=== PATIENT | male | born 1960 | race Caucasian/White ===

== ENCOUNTER 2018-12-01 06:24 | Emergency (ER) | payer OTHER ==
[2018-12-01] MEDS ORDERED: NS 1,000 ML IV ONE (06:49)
[2018-12-01 06:54] LABS: PLATELET COUNT 152 10^3/uL (150-400)
--- NOTE | 2018-12-01 07:04 | EDPHY ---
H & P Stated Complaint: upper abd pain starting this morning, feels bloated, recent nose sx Time Seen by Provider: 12/01/18 06:44 HPI/ROS: CHIEF COMPLAINT: Abdominal discomfort and distention HISTORY OF PRESENT ILLNESS: Patient is a 58-year-old man who had nasal septal surgery 5 days ago and has been taking Percocet since the surgery. He has taken 24 tablets. He flew to [place] and back yesterday and has not been drinking much water. He states that he had a small bowel movement earlier this morning but cannot remember his previous bowel movement. Woke up this morning at 6:00 a.m. With abdominal discomfort and was concerned that maybe it was a heart attack. No history of cardiac disease. No previous abdominal surgeries. He states that his pain is now gone. No shortness of breath. No diaphoresis. No nausea or vomiting. Severity: Moderate Modifying factors: Resolved REVIEW OF SYSTEMS: Constitutional: denies: chills, fever, recent illness, recent injury EENTM: denies: blurred vision, double vision, nose congestion Respiratory: denies: cough, shortness of breath Cardiac: denies: chest pain, irregular heart rate, lightheadedness, palpitations Gastrointestinal/Abdominal: See HPI Genitourinary: denies: dysuria, frequency, hematuria, pain Musculoskeletal: denies: joint pain, muscle pain Skin: denies: lesions, rash, jaundice, bruising Neurological: denies: headache, numbness, paresthesia, tingling, dizziness, weakness Hematologic/Lymphatic: denies: blood clots, easy bleeding, easy bruising Immunologic/allergic: denies: HIV/AIDS, transplant 10 systems reviewed and negative except as noted EXAM: GENERAL: Well-appearing, well-nourished and in no acute distress. HEAD: Atraumatic, normocephalic. EYES: Pupils equal round and reactive to light, extraocular movements intact, sclera anicteric, conjunctiva are normal. ENT: TMs normal, nares patent, oropharynx clear without exudates. Moist mucous membranes. NECK: Normal range of motion, supple without lymphadenopathy or JVD. LUNGS: Breath sounds clear to auscultation bilaterally and equal. No wheezes rales or rhonchi. HEART: Regular rate and rhythm without murmurs, rubs or gallops. ABDOMEN: Moderately distended, nontender, normoactive bowel sounds. No guarding, no rebound. No masses appreciated. BACK: No CVA tenderness, no spinal tenderness, step-offs or deformities EXTREMITIES: Normal range of motion, no pitting or edema. No clubbing or cyanosis. NEUROLOGICAL: Cranial nerves II through XII grossly intact. Normal speech, normal gait. 5/5 strength, normal movement in all extremities, normal sensation , normal reflexes PSYCH: Normal mood, normal affect. SKIN: Warm, dry, normal turgor, no visible rashes or lesions. Source: Patient - Personal History Current Tetanus/Diphtheria Vaccine: Yes Current Tetanus Diphtheria and Acellular Pertussis (TDAP): Yes - Medical/Surgical History Hx Asthma: No Hx Chronic Respiratory Disease: No Hx Diabetes: No Hx Cardiac Disease: No Hx Renal Disease: No Hx Cirrhosis: No Hx Alcoholism: No Hx HIV/AIDS: No Hx Splenectomy or Spleen Trauma: No Other PMH: deviated septum repair-2018 - Family History Significant Family History: No pertinent family hx - Social History Alcohol Use: Sober Drug Use: None Constitutional: Initial Vital Signs Temperature (C) 37.1 C 12/01/18 06:29 Heart Rate 64 12/01/18 06:29 Respiratory Rate 18 12/01/18 06:29 Blood Pressure 174/94 H 12/01/18 06:29 O2 Sat (%) 94 12/01/18 06:29 O2 Delivery Mode Room Air Allergies/Adverse Reactions: No Known Allergies Allergy (Unverified 12/01/18 06:28) Home Medications: Medication Instructions Recorded Cephalexin [Keflex] 12/01/18 Percocet 5-325 mg Tablet 12/01/18 Medical Decision Making - Diagnostics EKG Interpretation: An EKG obtained and was read and documented in trace view. Please see trace view for full reading and report. Sinus rhythm, no acute ischemic changes, Q- wave in inferior leads ED Course/Re-evaluation: 8:20 p.m. the patient remains asymptomatic other than stating that he has to go to the bathroom. I-STAT troponins failed 3 times. Will send the lab. Other lab work is reassuring. He is aware of his slightly elevated LFTs and his primary has been following this. He would like to go home if his trop is negative. 9:00 a.m. Patient and would like to go home. They do not want to wait for the troponin results. He remains asymptomatic. Differential Diagnosis: Partial list of the Differential diagnosis considered include but were not limited to; constipation, peptic ulcer disease, hepatitis and although unlikely based on the history and physical exam, I also considered obstruction, acute coronary disease, ischemia, appendicitis, biliary disease. - Data Points Laboratory Results: Laboratory Results 12/01/18 06:39 12/01/18 06:39 12/01/18 12/01/18 12/01/18 08:20 07:49 07:31 WBC RBC Hgb Hct MCV MCH MCHC RDW Plt Count MPV Neut % (Auto) Lymph % (Auto) [place] % (Auto) Eos % (Auto) Baso % (Auto) Nucleat RBC Rel Count Absolute Neuts (auto) Absolute Lymphs (auto) Absolute Monos (auto) Absolute Eos (auto) Absolute Basos (auto) Absolute Nucleated RBC Immature Gran % Immature Gran # Sodium Potassium Chloride Carbon Dioxide Anion Gap BUN Creatinine Estimated GFR Glucose Calcium Total Bilirubin Conjugated Bilirubin Unconjugated Bilirubin AST ALT Alkaline Phosphatase POC Troponin I TNP TNP Troponin I < 0.012 ng/mL ng/mL (0.000-0.034) Total Protein Albumin Lipase Urine Color Urine Appearance Urine pH Ur Specific [place] Urine Protein Urine Ketones Urine Blood Urine Nitrate Urine Bilirubin Urine Urobilinogen Ur Leukocyte Esterase Urine RBC Urine WBC Ur Epithelial Cells Urine Glucose 12/01/18 12/01/18 12/01/18 07:20 06:52 06:39 WBC RBC Hgb Hct MCV MCH MCHC RDW Plt Count MPV Neut % (Auto) Lymph % (Auto) [place] % (Auto) Eos % (Auto) Baso % (Auto) Nucleat RBC Rel Count Absolute Neuts (auto) Absolute Lymphs (auto) Absolute Monos (auto) Absolute Eos (auto) Absolute Basos (auto) Absolute Nucleated RBC Immature Gran % Immature Gran # Sodium 139 mEq/L mEq/L (135-145) Potassium 4.2 mEq/L mEq/L (3.5-5.2) Chloride 105 mEq/L mEq/L (97-110) Carbon Dioxide 24 mEq/l mEq/l (22-31) Anion Gap 10 mEq/L mEq/L (6-14) BUN 15 mg/dL mg/dL (7-23) Creatinine 0.9 mg/dL mg/dL (0.7-1.3) Estimated GFR > 60 Glucose 93 mg/dL mg/dL (70-100) Calcium 9.4 mg/dL mg/dL (8.5-10.4) Total Bilirubin 0.4 mg/dL mg/dL (0.1-1.4) Conjugated Bilirubin 0.4 mg/dL mg/dL (0.0-0.5) Unconjugated Bilirubin 0.0 mg/dL mg/dL (0.0-1.1) AST 131 IU/L H IU/L (17-59) ALT 116 IU/L H IU/L (21-72) Alkaline Phosphatase 55 IU/L IU/L (38-126) POC Troponin I TNP Troponin I Total Protein 7.1 g/dL g/dL (6.3-8.2) Albumin 4.3 g/dL g/dL (3.5-5.0) Lipase 122 IU/L IU/L (23-300) Urine Color YELLOW Urine Appearance CLEAR Urine pH 6.0 (5.0-7.5) Ur Specific [place] 1.013 (1.002-1.030) Urine Protein NEGATIVE (NEGATIVE) Urine Ketones NEGATIVE (NEGATIVE) Urine Blood NEGATIVE (NEGATIVE) Urine Nitrate NEGATIVE (NEGATIVE) Urine Bilirubin NEGATIVE (NEGATIVE) Urine Urobilinogen NEGATIVE EU EU (0.2-1.0) Ur Leukocyte Esterase NEGATIVE (NEGATIVE) Urine RBC NONE SEEN /hpf /hpf (0-3) Urine WBC 0-1 /hpf /hpf (0-3) Ur Epithelial Cells NONE SEEN /lpf /lpf (NONE-1+) Urine Glucose NEGATIVE (NEGATIVE) 12/01/18 06:39 WBC 6.98 10^3/uL 10^3/uL (3.80-9.50) RBC 4.58 10^6/uL 10^6/uL (4.40-6.38) Hgb 15.1 g/dL g/dL (13.7-17.5) Hct 43.3 % % (40.0-51.0) MCV 94.5 fL fL (81.5-99.8) MCH 33.0 pg pg (27.9-34.1) MCHC 34.9 g/dL g/dL (32.4-36.7) RDW 12.8 % % (11.5-15.2) Plt Count 152 10^3/uL 10^3/uL (150-400) MPV 9.7 fL fL (8.7-11.7) Neut % (Auto) 52.2 % % (39.3-74.2) Lymph % (Auto) 31.7 % % (15.0-45.0) [place] % (Auto) 11.5 % % (4.5-13.0) Eos % (Auto) 3.3 % % (0.6-7.6) Baso % (Auto) 0.7 % % (0.3-1.7) Nucleat RBC Rel Count 0.0 % % (0.0-0.2) Absolute Neuts (auto) 3.65 10^3/uL 10^3/uL (1.70-6.50) Absolute Lymphs (auto) 2.21 10^3/uL 10^3/uL (1.00-3.00) Absolute Monos (auto) 0.80 10^3/uL 10^3/uL (0.30-0.80) Absolute Eos (auto) 0.23 10^3/uL 10^3/uL (0.03-0.40) Absolute Basos (auto) 0.05 10^3/uL 10^3/uL (0.02-0.10) Absolute Nucleated RBC 0.00 10^3/uL 10^3/uL (0-0.01) Immature Gran % 0.6 % % (0.0-1.1) Immature Gran # 0.04 10^3/uL 10^3/uL (0.00-0.10) Sodium Potassium Chloride Carbon Dioxide Anion Gap BUN Creatinine Estimated GFR Glucose Calcium Total Bilirubin Conjugated Bilirubin Unconjugated Bilirubin AST ALT Alkaline Phosphatase POC Troponin I Troponin I Total Protein Albumin Lipase Urine Color Urine Appearance Urine pH Ur Specific [place] Urine Protein Urine Ketones Urine Blood Urine Nitrate Urine Bilirubin Urine Urobilinogen Ur Leukocyte Esterase Urine RBC Urine WBC Ur Epithelial Cells Urine Glucose Medications Given: Discontinued Medications Acetaminophen (Tylenol) 500 mg PO EDNOW ONE Stop: 12/01/18 09:22 Last Admin: 12/01/18 09:23 Dose: 500 mg Sodium Chloride (Ns) 1,000 mls @ 0 mls/hr IV EDNOW ONE; Wide Open PRN Reason: Protocol Stop: 12/01/18 06:50 Last Admin: 12/01/18 06:59 Dose: 1,000 mls Point of Care Test Results: Chemistry 12/01/18 12/01/18 12/01/18 08:20 07:31 07:20 POC Troponin I TNP TNP TNP Departure - Departure Disposition: Home, Routine, Self-Care Clinical Impression: Abdominal pain Qualifiers: Abdominal location: generalized Qualified Code(s): R10.84 - Generalized abdominal pain Constipation Qualifiers: Constipation type: unspecified constipation type Qualified Code(s): K59.00 - Constipation, unspecified Condition: Good Instructions: Constipation (ED), Acute Abdominal Pain (ED) Additional Instructions: You may use MiraLax for constipation if necessary. 1 cap full 3-4 times per day as needed. Follow-up with Dr. Ruiz about your elevated liver tests. Referrals: Bryson Ruiz MD [Primary Care Provider] - 5-7 days, call for appt.
--- NOTE | 2018-12-01 07:11 | CPEKG ---
Test Reason : OPEN Blood Pressure : / mmHG Vent. Rate : 058 BPM Atrial Rate : 057 BPM P-R Int : 149 ms QRS Dur : 083 ms QT Int : 431 ms P-R-T Axes : 025 -13 019 degrees QTc Int : 424 ms Sinus rhythm Abnormal R-wave progression, early transition Inferior infarct, old Confirmed by Kassandra Bhatia ([id number] on 12/01/2018 7:11:08 AM Referred By: KASSANDRA BHATIA Confirmed By:Kassandra Bhatia
[2018-12-01 09:03] VITALS: BP 159/103
[2018-12-01] MEDS ORDERED: ACETAMINOPHEN 500 MG TAB ONE (09:15)
[2018-12-01] MEDS ORDERED: ACETAMINOPHEN 500 MG TAB PO ONE (09:21)
== END 2018-12-01 09:22 | disposition home or self-care (01) ==
DX: R10.84 Generalized abdominal pain (principal); K59.00 Constipation, unspecified